=== PATIENT | female | born 1960 | race African-American/Black ===

== ENCOUNTER 2018-11-04 22:13 | Emergency (ER) | payer OTHER ==
[~2018-11-04] VITALS: Ht 180.3 cm; Wt 115.7 kg
[2018-11-05] MEDS ORDERED: cefTRIAXone SOD 1,000 MG VL IM ONE (03:45)
[2018-11-05 03:59] VITALS: BP 129/74
== END 2018-11-05 04:01 | disposition home or self-care (01) ==
LOC: ER 22:20
DX: J06.9 Acute upper respiratory infection, unspecified (principal); J32.9 Chronic sinusitis, unspecified
CPT/HCPCS: 96372; 99283; J0696

== ENCOUNTER → 2019-07-27 | Day surgery (SDC) | payer OTHER ==
[2019-07-23 11:15] LABS: Basophils # (auto) 0 uL; Eosinophils # (auto) 0.1 uL; Hemoglobin 12.7 g/dL (12.2-16.2); Monocytes # (auto) 0.3 uL; Platelet Count (auto) 249 10^3/uL (140-450)
[2019-07-23 11:17] LABS: Basophils % (auto) 1.1 % (0.0-2.0); Eosinophils % (auto) 1.9 % (0.0-7.0); Hematocrit 39.2 % (36.0-46.0); Lymphocytes % (auto) 48.1 % (10.0-50.0); Mean Corpuscular Hgb Conc. 32.4 g/dL (32.0-36.0); Mean Corpuscular Volume 80.3 fL (80.0-100.0); Monocytes % (auto) 8.3 % (0.0-12.0); Neutrophils # (auto) 1.7 uL; Neutrophils % (auto) 40.6 % (37.0-80.0); Nucleated Red Blood Cells % 0.1 %; Red Blood Cells 4.88 10^6/uL (4.0-5.20); Red Cell Distribution Width 13.9 % (11.8-14.3); White Blood Cell 4.2 10^3/uL (4.4-10.8)
[2019-07-23 11:57] LABS: INR 0.97 (0.9-1.15); Partial Thromboplastin Time 27.5 sec (23.64-32.05)
[~2019-07-27] VITALS: Ht 180.3 cm; Wt 127.0 kg
[~2019-07-27] MED LIST: LIDOCAINE HCL 2% TOP JELLY 5ML TOP ONE; MIDAZOLAM HCL 5 MG/ML-1ML VIAL ONE; SODIUM CHLORIDE LOCK 0 ML ONE; diphenhdrAMINE HCL 50 MG/1 ML VL ONE; fentaNYL CITRATE 100 MCG/2 ML VL ONE
[2019-07-27 11:36] VITALS: BP 133/71
== END | disposition home or self-care (01) ==
LOC: GI 08:55
PROVIDERS: ATTEND Internal Medicine Gastroenterology
DX: Z12.11 Encounter for screening for malignant neoplasm of colon (principal); D12.4 Benign neoplasm of descending colon; E66.9 Obesity, unspecified; Z86.010 Personal history of colon polyps; Z79.899 Other long term (current) drug therapy; Z98.891 History of uterine scar from previous surgery; Z80.0 Family history of malignant neoplasm of digestive organs; Z68.39 Body mass index [BMI] 39.0-39.9, adult
CPT/HCPCS: 36415; 45380; 85025; 85610; 85730; 88305; J2250; J7030; 99152

== ENCOUNTER 2020-11-01 14:02 | Emergency (ER) | payer MEDICAID, OTHER ==
[~2020-11-01] VITALS: Ht 180.3 cm; Wt 123.8 kg
[2020-11-01 16:32] VITALS: BP 149/90
[2020-11-01] MEDS ORDERED: IBUPROFEN 800 MG TAB PO ONE (16:45)
== END 2020-11-01 18:23 | disposition home or self-care (01) ==
LOC: EDBD 14:02 → ER 14:02
DX: S20.219A Contusion of unspecified front wall of thorax, initial encounter (principal); S29.012A Strain of muscle and tendon of back wall of thorax, initial encounter; V43.52XA Car driver injured in collision with other type car in traffic accident, initial encounter; Y93.89 Activity, other specified; Y92.410 Unspecified street and highway as the place of occurrence of the external cause; Y99.8 Other external cause status
CPT/HCPCS: 71046; 93005

== ENCOUNTER → 2020-11-19 | Outpatient (CLI) | payer MEDICAID ==
[2020-11-19 09:11] LABS: Basophils % (auto) 1.1 % (0.0-2.0); Eosinophils # (auto) 0.1 10 ^3/uL (0-0.8); Mean Corpuscular Hemoglobin 26.8 pg (28.0-32.0); Monocytes # (auto) 0.3 10 ^3/uL (0-1.3); Platelet Count (auto) 251 10^3/uL (140-450)
[2020-11-19 09:13] LABS: Basophils # (auto) 0 10 ^3/uL (0-0.2); Eosinophils % (auto) 1.5 % (0.0-7.0); Hematocrit 37.5 % (36.0-46.0); Hemoglobin 12.4 g/dL (12.2-16.2); Lymphocytes # (auto) 1.9 10 ^3/uL (0.4-5.4); Lymphocytes % (auto) 44.1 % (10.0-50.0); Mean Corpuscular Volume 81.4 fL (80.0-100.0); Neutrophils % (auto) 45.3 % (37.0-80.0); Nucleated Red Blood Cells % 0.2 %; Red Blood Cells 4.61 10^6/uL (4.0-5.20); Red Cell Distribution Width 14.2 % (11.8-14.3); White Blood Cell 4.3 10^3/uL (4.4-10.8)
[2020-11-19 09:20] LABS: Urine Bacteria NONE SEEN /hpf (None Seen); Urine Blood Negative /uL (Negative); Urine Specific Gravity 1.012 (1.001-1.035); Urine WBC 3 /hpf (0 - 5)
[2020-11-19 09:34] LABS: Albumin 3.9 g/dL (3.4-5.0); BUN/Creatinine Ratio 14.3; Calcium 9.4 mg/dL (8.5-10.1); Potassium 4.5 mmol/L (3.5-5.1)
[2020-11-19 09:47] LABS: Bilirubin, Total 0.9 mg/dL (0.2-1.0); Total Protein 8.1 g/dL (6.4-8.2)
[2020-11-20 07:50] LABS: Cholesterol 164 mg/dL (< 200)
[2020-11-20 07:53] LABS: HDL Cholesterol 70 mg/dL (40-59); LDL Cholesterol 82 mg/dL (< 100); Triglycerides 72 mg/dL (< 150)
== END | disposition home or self-care (01) ==
LOC: LAB 08:27
PROVIDERS: ATTEND Internal Medicine
DX: M25.569 Pain in unspecified knee (principal); Z79.899 Other long term (current) drug therapy
CPT/HCPCS: 36415; 80053; 80061; 81001; 83036; 84443; 85025

== ENCOUNTER 2021-03-18 02:58 | Emergency (ER) | payer MEDICAID ==
[~2021-03-18] VITALS: Ht 180.3 cm; Wt 122.5 kg
[2021-03-18] MEDS ORDERED: KETOROLAC TROMETH 60MG/2ML VIAL IM ONE (05:15)
[2021-03-18] MEDS ORDERED: methylPREDNISolone SOD SUCC 125 MG/2 ML VL IM ONE (05:15)
[2021-03-18 05:20] VITALS: BP 144/81
== END 2021-03-18 07:56 | disposition home or self-care (01) ==
LOC: ER 02:58
DX: M77.8 Other enthesopathies, not elsewhere classified (principal)
CPT/HCPCS: 96372; 99284; J1885; J2930

== ENCOUNTER 2021-04-29 08:37 | Emergency (ER) | payer MEDICAID, OTHER ==
[~2021-04-29] VITALS: Ht 180.3 cm; Wt 121.6 kg
[2021-04-29 09:13] LABS: Urine Bacteria FEW /hpf (None Seen); Urine Blood Negative /uL (Negative); Urine Mucus FEW (None Seen); Urine Specific Gravity 1.025 (1.001-1.035); Urine WBC 1 /hpf (0 - 5)
[2021-04-29 09:32] VITALS: BP 146/87
== END 2021-04-29 10:57 | disposition home or self-care (01) ==
LOC: ER 08:37
DX: S29.012A Strain of muscle and tendon of back wall of thorax, initial encounter (principal); V43.52XA Car driver injured in collision with other type car in traffic accident, initial encounter; Y93.89 Activity, other specified; Y92.410 Unspecified street and highway as the place of occurrence of the external cause; Y99.8 Other external cause status
CPT/HCPCS: 81001

== ENCOUNTER → 2022-04-23 | Outpatient (CLI) | payer MEDICAID ==
[2022-04-23 09:38] LABS: Basophils # (auto) 0 10 ^3/uL (0-0.2); Basophils % (auto) 0.6 % (0.0-2.0); Eosinophils # (auto) 0.1 10 ^3/uL (0-0.8); Lymphocytes # (auto) 2.2 10 ^3/uL (0.4-5.4); Monocytes # (auto) 0.4 10 ^3/uL (0-1.3); Neutrophils # (auto) 2.2 10 ^3/uL (1.6-8.6); Nucleated Red Blood Cells % 0.1 %; White Blood Cell 4.9 10^3/uL (4.4-10.8)
[2022-04-23 09:40] LABS: Eosinophils % (auto) 1.1 % (0.0-7.0); Hematocrit 38.7 % (36.0-46.0); Hemoglobin 12.6 g/dL (12.2-16.2); Lymphocytes % (auto) 45.3 % (10.0-50.0); Mean Corpuscular Hemoglobin 26.2 pg (28.0-32.0); Mean Corpuscular Hgb Conc. 32.5 g/dL (32.0-36.0); Mean Corpuscular Volume 80.6 fL (80.0-100.0); Monocytes % (auto) 8.9 % (0.0-12.0); Neutrophils % (auto) 44.1 % (37.0-80.0); Red Cell Distribution Width 13.8 % (11.8-14.3)
[2022-04-23 10:09] LABS: Albumin 3.7 g/dL (3.4-5.0); Bilirubin, Total 0.8 mg/dL (0.2-1.0); Calcium 9.1 mg/dL (8.5-10.1); Potassium 4.2 mmol/L (3.5-5.1); Total Protein 7.9 g/dL (6.4-8.2)
[2022-04-23 10:18] LABS: Urine Bacteria NONE SEEN /hpf (None Seen); Urine Blood Negative /uL (Negative); Urine Mucus FEW (None Seen); Urine Specific Gravity 1.021 (1.001-1.035); Urine WBC <1 /hpf (0 - 5)
== END | disposition home or self-care (01) ==
LOC: LAB 08:38
PROVIDERS: ATTEND Internal Medicine
DX: Z00.00 Encounter for general adult medical examination without abnormal findings (principal); E66.9 Obesity, unspecified
CPT/HCPCS: 36415; 80053; 80061; 81001; 83036; 84443; 85025

== ENCOUNTER 2022-07-14 15:07 | Emergency (ER) | payer MEDICAID ==
[~2022-07-14] VITALS: Ht 180.3 cm; Wt 124.2 kg
[2022-07-14 16:05] VITALS: BP 122/79
[2022-07-14] MEDS ORDERED: IBUP800T27 PO (16:09)
== END 2022-07-14 16:13 | disposition home or self-care (01) ==
LOC: ER 15:07
DX: S63.502A Unspecified sprain of left wrist, initial encounter (principal); Z79.1 Long term (current) use of non-steroidal anti-inflammatories (NSAID); X58.XXXA Exposure to other specified factors, initial encounter; Y93.89 Activity, other specified; Y92.89 Other specified places as the place of occurrence of the external cause; Y99.8 Other external cause status
CPT/HCPCS: 73110

== ENCOUNTER → 2023-01-14 | Outpatient (CLI) | payer MEDICAID ==
[~2023-01-14] MED LIST changes: +IBUP-1456 PO; -LIDOCAINE HCL 2% TOP JELLY 5ML TOP ONE; -MIDAZOLAM HCL 5 MG/ML-1ML VIAL ONE; -SODIUM CHLORIDE LOCK 0 ML ONE; -diphenhdrAMINE HCL 50 MG/1 ML VL ONE; -fentaNYL CITRATE 100 MCG/2 ML VL ONE
[2023-01-14 09:44] LABS: Cholesterol 157 mg/dL (< 200); HDL Cholesterol 74 mg/dL (40-59); LDL Cholesterol 73 mg/dL (< 100); Triglycerides 59 mg/dL (< 150)
== END | disposition home or self-care (01) ==
LOC: LAB 08:45
PROVIDERS: ATTEND Internal Medicine
DX: Z00.00 Encounter for general adult medical examination without abnormal findings (principal); E66.01 Morbid (severe) obesity due to excess calories
CPT/HCPCS: 36415; 80061; 82270; 83036

== ENCOUNTER → 2023-07-13 | Outpatient (CLI) | payer MEDICAID ==
[2023-07-13 09:43] LABS: Basophils # (auto) 0 10 ^3/uL (0-0.2); Basophils % (auto) 1.1 % (0.0-2.0); Eosinophils # (auto) 0.1 10 ^3/uL (0-0.8); Eosinophils % (auto) 1.5 % (0.0-7.0); Hematocrit 38.4 % (36.0-46.0); Hemoglobin 12.3 g/dL (12.2-16.2); Lymphocytes # (auto) 2.2 10 ^3/uL (0.4-5.4); Lymphocytes % (auto) 46.2 % (10.0-50.0); Mean Corpuscular Hemoglobin 25.9 pg (28.0-32.0); Mean Corpuscular Hgb Conc. 32.1 g/dL (32.0-36.0); Mean Corpuscular Volume 80.7 fL (80.0-100.0); Monocytes # (auto) 0.5 10 ^3/uL (0-1.3); Monocytes % (auto) 9.7 % (0.0-12.0); Neutrophils # (auto) 1.9 10 ^3/uL (1.6-8.6); Neutrophils % (auto) 41.5 % (37.0-80.0); Nucleated Red Blood Cells % 0.1 %; Red Blood Cells 4.76 10^6/uL (4.0-5.20); Red Cell Distribution Width 13.9 % (11.8-14.3); White Blood Cell 4.7 10^3/uL (4.4-10.8)
[2023-07-13 10:00] LABS: Alanine Aminotransferase 27 U/L (7-40); Albumin 4.4 g/dL (3.2-4.8); Alkaline Phosphatase 96 U/L (46-116); Anion Gap 5 (5-15); Aspartate Aminotransferase 24 U/L (13-40); BUN/Creatinine Ratio 9.1 (10.0-20.0); Blood Urea Nitrogen 8 mg/dL (9-23); Calcium 9.3 mg/dL (8.5-10.1); Carbon Dioxide 26 mmol/L (20-30); Chloride 110 mmol/L (98-107); Glucose 92 mg/dL (74-106); LDL Cholesterol 80 mg/dL (< 100); Potassium 4.3 mmol/L (3.5-5.1); Sodium 141 mmol/L (136-145); Triglycerides 82 mg/dL (< 150)
[2023-07-13 10:01] LABS: Bilirubin, Total 1.1 mg/dL (0.2-1.0); Cholesterol 155 mg/dL (< 200); HDL Cholesterol 58 mg/dL (40-59)
== END | disposition home or self-care (01) ==
LOC: LAB 09:30
PROVIDERS: ATTEND Internal Medicine
DX: I10 Essential (primary) hypertension (principal); E78.5 Hyperlipidemia, unspecified
CPT/HCPCS: 36415; 80053; 80061; 83036; 85025

== ENCOUNTER → 2024-04-24 | Outpatient (CLI) | payer MEDICAID ==
[2024-04-24 08:56] LABS: Basophils # (auto) 0.1 10 ^3/uL (0-0.2); Eosinophils # (auto) 0.1 10 ^3/uL (0-0.8); Monocytes # (auto) 0.4 10 ^3/uL (0-1.3)
[2024-04-24 08:59] LABS: Basophils % (auto) 1.5 % (0.0-2.0); Eosinophils % (auto) 1.4 % (0.0-7.0); Hematocrit 38.5 % (36.0-46.0); Hemoglobin 12.8 g/dL (12.2-16.2); Lymphocytes # (auto) 2.4 10 ^3/uL (0.4-5.4); Lymphocytes % (auto) 52.4 % (10.0-50.0); Mean Corpuscular Hemoglobin 26.8 pg (28.0-32.0); Mean Corpuscular Hgb Conc. 33.1 g/dL (32.0-36.0); Mean Corpuscular Volume 80.8 fL (80.0-100.0); Monocytes % (auto) 8.2 % (0.0-12.0); Neutrophils # (auto) 1.7 10 ^3/uL (1.6-8.6); Neutrophils % (auto) 36.5 % (37.0-80.0); Nucleated Red Blood Cells % 0.3 %; Platelet Count (auto) 298 10^3/uL (140-450); Red Blood Cells 4.77 10^6/uL (4.0-5.20); Red Cell Distribution Width 13.9 % (11.8-14.3); White Blood Cell 4.6 10^3/uL (4.4-10.8)
[2024-04-24 10:12] LABS: Alanine Aminotransferase 27 U/L (7-40); Alkaline Phosphatase 93 U/L (46-116); Anion Gap 5 (5-15); BUN/Creatinine Ratio 11.1 (10.0-20.0); Blood Urea Nitrogen 9 mg/dL (9-23); Carbon Dioxide 31 mmol/L (20-31); Chloride 104 mmol/L (98-107); Glucose 102 mg/dL (74-106); LDL Cholesterol 90 mg/dL (< 100); Potassium 3.1 mmol/L (3.5-5.1); Sodium 140 mmol/L (136-145); Triglycerides 76 mg/dL (< 150)
[2024-04-24 10:13] LABS: Albumin 4.5 g/dL (3.2-4.8); Aspartate Aminotransferase 19 U/L (13-40); Cholesterol 159 mg/dL (< 200); HDL Cholesterol 56 mg/dL (40-59)
[2024-04-24 10:14] LABS: Bilirubin, Total 1.3 mg/dL (0.2-1.0)
== END | disposition home or self-care (01) ==
LOC: LAB 08:37
PROVIDERS: ATTEND Internal Medicine
DX: Z12.11 Encounter for screening for malignant neoplasm of colon (principal); I10 Essential (primary) hypertension; E66.9 Obesity, unspecified; Z79.899 Other long term (current) drug therapy
CPT/HCPCS: 36415; 80053; 80061; 82270; 82306; 82607; 84443; 85025

== ENCOUNTER → 2024-10-17 | Outpatient (CLI) | payer MEDICAID ==
[2024-10-17 10:48] LABS: Eosinophils # (auto) 0.1 10 ^3/uL (0-0.8); Hemoglobin 12.5 g/dL (12.2-16.2); Lymphocytes # (auto) 2.2 10 ^3/uL (0.4-5.4); Monocytes # (auto) 0.4 10 ^3/uL (0-1.3); Neutrophils # (auto) 1.8 10 ^3/uL (1.6-8.6)
[2024-10-17 10:50] LABS: Basophils # (auto) 0 10 ^3/uL (0-0.2); Basophils % (auto) 0.8 % (0.0-2.0); Eosinophils % (auto) 1.5 % (0.0-7.0); Hematocrit 37.6 % (36.0-46.0); Lymphocytes % (auto) 48.5 % (10.0-50.0); Mean Corpuscular Hemoglobin 26.2 pg (28.0-32.0); Mean Corpuscular Hgb Conc. 33.2 g/dL (32.0-36.0); Mean Corpuscular Volume 78.9 fL (80.0-100.0); Monocytes % (auto) 9.4 % (0.0-12.0); Neutrophils % (auto) 39.8 % (37.0-80.0); Nucleated Red Blood Cells % 0.3 %; Platelet Count (auto) 266 10^3/uL (140-450); Red Blood Cells 4.76 10^6/uL (4.0-5.20); Red Cell Distribution Width 13.8 % (11.8-14.3); White Blood Cell 4.6 10^3/uL (4.4-10.8)
[2024-10-17 11:30] LABS: Alanine Aminotransferase 27 U/L (7-40); Albumin 4.5 g/dL (3.2-4.8); Alkaline Phosphatase 92 U/L (46-116); Anion Gap 8 (5-15); Aspartate Aminotransferase 17 U/L (13-40); BUN/Creatinine Ratio 15.7 (10.0-20.0); Blood Urea Nitrogen 13 mg/dL (9-23); Calcium 10.3 mg/dL (8.7-10.4); Carbon Dioxide 27 mmol/L (20-31); Chloride 104 mmol/L (98-107); Glucose 94 mg/dL (74-106); Sodium 139 mmol/L (136-145); Total Protein 7.9 g/dL (5.7-8.2)
[2024-10-17 11:41] LABS: Bilirubin, Total 1.2 mg/dL (0.2-1.0)
== END | disposition home or self-care (01) ==
LOC: LAB 10:23
PROVIDERS: ATTEND Internal Medicine
DX: I10 Essential (primary) hypertension (principal); E55.9 Vitamin D deficiency, unspecified
CPT/HCPCS: 36415; 80053; 82306; 85025

== ENCOUNTER → 2025-03-15 | Outpatient (CLI) | payer MEDICAID ==
[2025-03-15 10:30] LABS: Alanine Aminotransferase 30 U/L (7-40); Albumin 4.3 g/dL (3.2-4.8); Alkaline Phosphatase 88 U/L (46-116); Anion Gap 9 (5-15); BUN/Creatinine Ratio 12.4 (10.0-20.0); Bilirubin, Total 1.2 mg/dL (0.2-1.0); Blood Urea Nitrogen 11 mg/dL (9-23); Calcium 9.4 mg/dL (8.7-10.4); Carbon Dioxide 26 mmol/L (20-31); Chloride 107 mmol/L (98-107); Cholesterol 158 mg/dL (< 200); Glucose 89 mg/dL (74-106); HDL Cholesterol 53 mg/dL (40-59); Potassium 4.1 mmol/L (3.5-5.1); Sodium 142 mmol/L (136-145); Total Protein 8.0 g/dL (5.7-8.2); Triglycerides 71 mg/dL (< 150)
== END | disposition home or self-care (01) ==
LOC: LAB 09:25
PROVIDERS: ATTEND Internal Medicine
DX: I10 Essential (primary) hypertension (principal); E55.9 Vitamin D deficiency, unspecified; E66.9 Obesity, unspecified; Z12.11 Encounter for screening for malignant neoplasm of colon
CPT/HCPCS: 36415; 80053; 80061; 82306; 84443

== ENCOUNTER 2025-03-20 14:31 | Emergency (ER) | payer MEDICAID ==
[~2025-03-20] VITALS: Ht 180.3 cm; Wt 127.0 kg
--- NOTE | 2025-03-20 15:58 | ED.PDOC ---
History of Present Illness HPI Comments 65F presents to the ER w/ the c/c of LE. Pt reports on having right last pain today but originally the last being sore. Pt states on taking over the counter medications w/ no relief. Denies chills, fever, N/V/D, SOB, CP. Denies any other associated symptom's, modifiers, or recent injuries or sick contact at this time. Chief Complaint: Lower Extremity Time Seen by MD: 16:00 Primary Care Provider: NONE Reviewed Notes: Nurses Notes, Medications, Allergies Allergies: Coded Allergies: NO KNOWN ALLERGIES (Unverified , 07/23/19) Home Meds Active Scripts Ibuprofen (Ibuprofen) 800 Mg Tab, 1 TAB PO TID, #30 TAB Prov:TOYA DE LA ROSA 07/14/22 Information Source: Patient Mode of Arrival: Ambulatory Severity: Moderate Timing: Came on: Suddenly Duration: Since onset Prehospital treatment: None Past Medical History PAST MEDICAL HISTORY: Denies Surgical History: Denies all surgeries PROCESSING ASSISTANT History: No Pertinent PROCESSING ASSISTANT History Family History Family History: Reviewed,noncontributory to illness, Unknown Social History Smoker: Non-Smoker Alcohol: Denies ETOH Use Drugs: Denies Drug Use Lives In: Home Constitutional: denies: chills, diaphoresis, fatigue, fever, malaise, sweats, weakness, others EENTM: denies: blurred vision, double vision, ear bleeding, ear discharge, ear drainage, ear pain, ear ringing, eye pain, eye redness, hearing loss, mouth pain, mouth swelling, nasal discharge, nose bleeding, nose congestion, nose pain, photophobia, tearing, throat pain, throat swelling, voice changes, others Respiratory: denies: cough, hemoptysis, orthopnea, SOB at rest, shortness of breath, SOB with excertion, stridor, wheezing, others Cardiovascular: denies: chest pain, dizzy spells, diaphoresis, Dyspnea on exertion, edema, irregular heart beat, left arm pain, lightheadedness, palpitations, PND, syncope, others Gastrointestinal: denies: abdomen distended, abdominal pain, blood streaked bowels, constipated, diarrhea, dysphagia, difficulty swallowing, hematemesis, melena, nausea, poor appetite, poor fluid intake, rectal bleeding, rectal pain, vomiting, others Genitourinary: denies: abnormal vagina bleeding, burning, dyspareunia, dysuria, flank pain, frequency, hematuria, incontinence, pain, , vagina discharge, urgency, others Neurological: denies: dizziness, fainting, headache, left sided numbness, left sided weakness, numbness, paresthesia, pre-existing deficit, right sided numbness, right sided weakness, seizure, speech problems, tingling, tremors, weakness, others Musculoskeletal: reports: others (right last pain); denies: back pain, gout, joint pain, joint swelling, muscle pain, muscle stiffness, neck pain Integumetry: denies: bruises, change in color, change in hair/nails, dryness, laceration, lesions, lumps, rash, wounds, others Allergic/Immunocompromised: denies: Difficulty Healing, Frequent Infections, Hives, Itching, others Hematologic/Lymphatic: denies: anemia, blood clots, easy bleeding, easy bruising, swollen glands, others Endocrine: denies: excessive hunger, excessive sweating, excessive thirst, excessive urination, flushing, intolerance to cold, intolerance to heat, unexplained weight gain, unexplained weight loss, others Psychiatric: denies: anxiety, bipolar disorder, depression, hopeless, panic disorder, schizophrenia, sleepless, suicidal, others All Other Systems: Reviewed and Negative Physical Exam General Appearance: No Apparent Distress, Normal HEENT: Normal ENT Inspection, Pharynx Normal, TMs Normal Neck: Full Range of Motion, Non-Tender, Normal, Normal Inspection Respiratory: Chest Non-Tender, Lungs Clear, No Accessory Muscle Use, No Respiratory Distress, Normal Breath Sounds Cardiovascular: No Edema, No JVD, No Murmur, No Gallop, Normal Peripheral Pulses, Regular Rate/Rhythm Breast Exam: Deferred Gastrointestinal: No Organomegaly, Non Tender, No Pulsatile Mass, Normal Bowel Sounds, Soft Genitalia: Deferred Pelvic: Deferred Rectal: Deferred Extremities: No calf tenderness, Normal capillary refill, Normal inspection, Normal range of motion, Non-tender, No pedal edema Musculoskeletal : Apperance: Normal Neurologic: Alert, art handler II-XII nml as Tested, No Motor Deficits, Normal Affect, Normal Mood, No Sensory Deficits Cerebellar Function: Normal Reflexes: Normal Skin: Dry, Normal Color, Warm Lymphatic: No Adenopathy Was a procedure done? Was a procedure done?: No Differential Dx Considerations may include: Knee strain, effusion, DVT, X-Ray, Labs, Meds, VS Vital Signs Date Time Temp Pulse Resp B/P (MAP) Pulse Ox O2 Delivery O2 Flow Rate FiO2 03/20/25 16:49 74 16 110/55 (73) 97 03/20/25 14:32 97.6 79 18 121/79 97 97.6 X-Ray, Labs, Meds, VS Comment Imaging was reviewed by this provider, there is no obvious pathological or acute disease process. Pending radiology review Labs were reviewed by this provider, no abnormalities Vital signs reviewed by this provider, clinically stable Time of 1ST Reevaluation: 16:30 Reevaluation 1ST: Unchanged Patient Education/Counseling: Diagnosis, Treatment, Prognosis, Need For Follow Up (Follow up with PCP next available appointment) Family Education/Counseling: No Family Present SEPSIS Sepsis Screen Date sepsis recognized/suspect: Mar 20, 2025 Time Sepsis recognized/suspect: 1434 Recent Procedure: No On Antibiotic Therapy: No Respiratory Rate >20: No Heart Rate >90: No Temp<36 C (96.8 F) or >38.3 C: No SBP <90 or MAP <65 mmHG: No New Acute Mental Status Change: No Is the patient on CPAP, BIPAP,: No Physician Orders R Knee 3v Xray (03/20/25 15:36) Vital Signs Date Time Temp Pulse Resp B/P (MAP) Pulse Ox O2 Delivery O2 Flow Rate FiO2 03/20/25 16:49 74 16 110/55 (73) 97 03/20/25 14:32 97.6 79 18 121/79 97 97.6 Departure 1 Departure Time of Disposition: 16:56 Impression: Primary Impression: Right leg pain Additional Impression: Arthritis of right knee Disposition: 01 HOME / SELF CARE / HOMELESS Condition: Fair e-Prescriptions Lidocaine (LIDODERM 5% TOPICAL PATCH) 1 Patch Ph 1 PATCH TOP DAILY, #30 PATCH 1 Refill Prov: CHAZ TELLEZ 03/20/25 Ibuprofen Micronized (Ibuprofen) 800 Mg Tab 800 MG PO TID PRN, #40 TAB Prov: CHAZ TELLEZ 03/20/25 Discharged With: Self Critical Care Note Critical Care Time?: No Stability Stability form required: No I personally scribed for CHAZ TELLEZP ([email or web address]) on 03/20/25 at 15:58. Electronically submitted by Marvin Mckeon ([email or web address]). CHAZ TELLEZP Mar 20, 2025 15:58
--- NOTE | 2025-03-20 16:13 | DVH ---
EXAM: XY R KNEE 3V XRAY HISTORY: pain COMPARISON: None TECHNIQUE: 3 views of the right knee were performed. FINDINGS: No acute fracture is identified about the right knee. There are tricompartmental marginal osteophytes . There is moderate to severe joint space narrowing of the medial and patellofemoral compartments. T here may be a moderate to large joint effusion accumulating in the suprapatellar pouch. IMPRESSION: 1. No acute fracture of the right knee. 2. Tricompartmental degenerative changes of the right knee, most severe in the medial compartment.
[2025-03-20] MEDS ORDERED: LIDO5DIS21 TOP (16:57)
[2025-03-20] MEDS ORDERED: IBUP-1455 PO (16:57)
[2025-03-20 17:26] VITALS: BP 114/74; PULSE 91; RESP 16; TEMP 97.9; O2SAT 97
== END 2025-03-20 17:27 | disposition home or self-care (01) ==
LOC: ER 14:31
DX: M17.11 Unilateral primary osteoarthritis, right knee (principal); M79.604 Pain in right leg; Z79.899 Other long term (current) drug therapy
CPT/HCPCS: 73562